=== PATIENT | female | born 1975 | race Hispanic/Latino ===

== ENCOUNTER 2019-05-06 12:38 | Emergency (ER) | payer MEDICAID, OTHER ==
[2019-05-06] MEDS ORDERED: MECLIZINE 25 MG TAB PO ONE (12:47)
--- NOTE | 2019-05-06 12:48 | Emergency Department Report ---
ED Dizziness HPI - General Chief Complaint: Dizziness Stated Complaint: NAUSEA/DIZZINESS Time Seen by Provider: 05/06/19 12:46 Source: patient Mode of arrival: Stretcher Limitations: No Limitations - History of Present Illness Initial Comments: 43 yo comes to ER sp argument with with co "dizziness." States the room is spinning. Worse when she moves. Better when she lies still. No chest pain. no SOB. no trauma. BP normal on arrival. SR. Has not had this in the past. 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 No abd pain; no n/v/d. No fever or chills. no cough or congestion LMP 9 y ago [facility] bronchitis, smoker obese Complaint: dizziness -: Sudden Timing: sudden onset Description: "room spinning" History of Same: No History of Trauma: No Severity: moderate Improves With: remaining still Worsens With: movement Associated Symptoms: denies other symptoms - Related Data Allergies Allergy/AdvReac Type Severity Reaction Status Date / Time No Known Allergies Allergy Verified 05/06/19 12:46 ED Review of Systems ROS: Stated complaint: NAUSEA/DIZZINESS Other details as noted in HPI Comment: All other systems reviewed and negative ED Past Medical Hx - Past Medical History Previous Medical History?: Yes Additional medical history: high cholesterol- obese- bronchitis - Surgical History Past Surgical History?: Yes Additional Surgical History: uterine ablation-mastoid bone removed years ago - Family History Family history: no significant, other (parents a/w) - Social History Smoking Status: Current Every Day Smoker Substance Use Type: None ED Physical Exam - General Limitations: No Limitations General appearance: alert, in no apparent distress - Head Head exam: Present: atraumatic, normocephalic - Eye Eye exam: Present: normal appearance, PERRL - ENT ENT exam: Present: mucous membranes moist, other (dizziness inc with turning head to left rapidly) - Neck Neck exam: Present: normal inspection - Respiratory Respiratory exam: Present: normal lung sounds bilaterally. Absent: respiratory distress - Cardiovascular Cardiovascular Exam: Present: regular rate, normal rhythm. Absent: systolic murmur, diastolic murmur, rubs, gallop - GI/Abdominal GI/Abdominal exam: Present: soft, normal bowel sounds - Rectal Rectal exam: Present: deferred - Extremities Exam Extremities exam: Present: normal inspection - Back Exam Back exam: Present: normal inspection - Neurological Exam Neurological exam: Present: alert, oriented X3 - Psychiatric Psychiatric exam: Present: normal affect, normal mood - Skin Skin exam: Present: warm, dry, intact, normal color. Absent: rash ED Course Vital Signs 05/06/19 12:47 Temperature 98 F Pulse Rate 83 Respiratory 16 Rate Blood Pressure 108/66 [Left] O2 Sat by Pulse 95 Oximetry - Reevaluation(s) Reevaluation #1: 05/06/19 13:45 on re exam pt reports feeling better this is p antivert was given ED Medical Decision Making - Lab Data Result diagrams: 05/06/19 12:53 05/06/19 12:53 - EKG Data EKG shows normal: sinus rhythm Rate: normal - EKG Data When compared to previous EKG there are: no significant change Interpretation: no acute changes - Radiology Data Radiology results: report reviewed, image reviewed - Medical Decision Making Labs 05/06/19 05/06/19 12:53 12:53 WBC 10.2 RBC 4.45 Hgb 14.0 Hct 41.2 MCV 93 MCH 32 MCHC 34 RDW 13.0 L Plt Count 236 Sodium 138 Potassium 3.9 Chloride 102.1 Carbon Dioxide 20 L Anion Gap 20 BUN 11 Creatinine 0.6 L Estimated GFR > 60 BUN/Creatinine Ratio 18 Glucose 96 Calcium 9.2 Total Bilirubin < 0.20 AST 13 ALT 17 Alkaline Phosphatase 58 Troponin T < 0.010 Total Protein 7.1 Albumin 3.9 Albumin/Globulin Ratio 1.2 Vital Signs 05/06/19 12:47 Temperature 98 F Pulse Rate 83 Respiratory 16 Rate Blood Pressure 108/66 [Left] O2 Sat by Pulse 95 Oximetry - Differential Diagnosis ro htn/acs/anxiety/vertigo/arrhythmia Critical care attestation.: If time is entered above; I have spent that time in minutes in the direct care of this critically ill patient, excluding procedure time. ED Disposition Clinical Impression: Vertigo Disposition: DC-01 TO HOME OR SELFCARE Is pt being admited?: No Does the pt Need Aspirin: No Condition: Stable Instructions: Vertigo (ED), Benign Paroxysmal Positional Vertigo (ED), Dizziness (ED) Additional Instructions: ALL LABS NORMAL TODAY 12 LEAD EKG OF HEART NORMAL TODAY FOLLOW UP WITH PCP NEXT WEEK TO BE SURE YOU FEEL BETTER REFERRAL BELOW DIET TOLERATED ACTIVITY TOLERATED Referrals: [facility] [Outside] - 3-5 Days Time of Disposition: 13:45
[2019-05-06] MEDS ORDERED: IBUPROFEN 800 MG TAB PO ONE (12:57)
[2019-05-06 13:06] LABS: Hematocrit 41.2 % (30.3-42.9); Mean Corpuscular HGB Conc 34 % (30-34); Mean Corpuscular Volume 93 fl (79-97); Platelet Count 236 K/mm3 (140-440); Red Blood Count 4.45 M/mm3 (3.65-5.03)
[2019-05-06 13:30] LABS: Alanine Aminotransferase 17 units/L (7-56); Albumin 3.9 g/dL (3.9-5); BUN/Creatinine Ratio 18; Blood Urea Nitrogen 11 mg/dL (7-17); Calcium 9.2 mg/dL (8.4-10.2); Hemolysis Index 12
--- NOTE | 2019-05-06 14:05 | XRay Report ---
CHEST 1 VIEW 05/06/2019 1:41 PM INDICATION / CLINICAL INFORMATION: Dizziness. COMPARISON: None available. FINDINGS: SUPPORT DEVICES: None. HEART / MEDIASTINUM: No significant abnormality. LUNGS / PLEURA: Bandlike opacity in the right lower lung most likely reflect subsegmental atelectasis . The left lung is grossly clear. No pneumothorax. ADDITIONAL FINDINGS: No significant additional findings. IMPRESSION: 1. Right lower lung bandlike opacity most likely indicating subsegmental atelectasis. Signer Name: Adiel Hutton MD Signed: 05/06/2019 2:01 PM Workstation Name: [id number]
[2019-05-06 14:48] VITALS: BP 110/70
== END 2019-05-06 14:26 | disposition home or self-care (01) ==
LOC: ED 12:38
DX: R42 Dizziness and giddiness (principal); E78.00 Pure hypercholesterolemia, unspecified; F17.200 Nicotine dependence, unspecified, uncomplicated; Z98.890 Other specified postprocedural states
CPT/HCPCS: 36415; 71045; 80053; 84484; 85027; 93005; 93010

== ENCOUNTER 2021-01-14 13:53 | Emergency (ER) | payer OTHER | END 2021-01-14 14:00 | LOC: ED 13:53 | DX: Z04.1 Encounter for examination and observation following transport accident (principal); Z53.21 Procedure and treatment not carried out due to patient leaving prior to being seen by health care provider; V87.7XXA Person injured in collision between other specified motor vehicles (traffic), initial encounter; Y93.89 Activity, other specified; Y92.488 Other paved roadways as the place of occurrence of the external cause; Y99.8 Other external cause status ==